=== PATIENT | male | born 1995 | race Caucasian/White ===

== ENCOUNTER 2018-03-25 02:58 | Emergency (ER) | payer OTHER ==
[~2018-03-25] VITALS: Ht 185.4 cm; Wt 67.3 kg
[2018-03-25 03:09] VITALS: Ht 185.4 cm; Wt 67.3 kg
--- NOTE | 2018-03-25 03:22 | EMERGENCY ROOM VISIT NOTE ---
History Report prepared by Evelyn: Barron Goff Under the Supervision of: Dr. Deana Roberts D.O. First contact with patient: 03:07 Chief Complaint: ALCOHOL OVERDOSE Stated Complaint: ALCOHOL Nursing Triage Summary: Pt was walking [place] [facility] and was stopped by police. Pt refused to answer or cooperate with police and was arrested. Pt had been drinking tonight and EMS was called. the patient was released to EMS and sent here for evaluation. History of Present Illness The patient is a 22 year old male who presents to the Emergency Room with complaints of persistent general alcohol intoxication [employer]. Per EMS, the patient was released to EMS by police. PER EMS, the patient has been drinking. They report there was mud all over the patients clothing. They note his heart rate was 130. The patient reports drinking beers. He denies any illicit drug use. He denies any vomiting. He denies any underlying medical problems. He states he is a [employer] in college. He denies chewing tobacco. He states he was eating [employer]. He denies any abdominal pain. He denies any recent falls or other injuries. HPI is limited secondary to alcohol intoxication. Source of History: patient, EMS History Limited By: intoxication (alcohol ) Onset: [employer] Position: other (general ) Quality: other (alcohol intoxication) Timing: other (persistent ) Associated Symptoms: No vomiting Note: Denies any falls or injuries. Review of Systems ROS is limited secondary to alcohol intoxication. Past Medical & Surgical Medical Problems: (1) No Known Active Medical Problems Family History No pertinent family history Social History Smoking Status: Never Smoker Alcohol Use: heavy Marital Status: single Housing Status: lives with roommate Occupation Status: [employer] student Current/Historical Medications Unable to Obtain Active Prescriptions or Reported Meds Physical Exam Vital Signs Date Time Temp Pulse Resp B/P (MAP) Pulse Ox O2 Delivery O2 Flow Rate FiO2 03/25/18 06:14 36.5 101 18 126/73 96 Room Air 03/25/18 04:42 90 18 105/52 94 Nasal Cannula 2.0 03/25/18 03:46 95 Nasal Cannula 2.0 03/25/18 03:46 84 Room Air 03/25/18 03:35 96 Nasal Cannula 2.0 03/25/18 03:34 85 Room Air 03/25/18 03:12 Room Air 03/25/18 03:09 36.5 115 18 158/96 95 Room Air Physical Exam General: Smells of ETOH HEENT: Head - normocephalic and atraumatic Pupils are 2 mm, round, and non- reactive to light. Extraocular eye muscles are intact, and sclera are anicteric. Nose - moist nasal mucosa without discharge. Mouth - moist buccal mucosa. Oropharynx is nonerythematous and there is no tonsillar exudate or edema noted. Brown substance about his face and mouth. Neck: Supple; no JVD, nuchal rigidity, cervical lymphadenopathy. Heart: Tachycardic rate and regular rhythm. There is a normal S1 and S2 with no murmurs, clicks, or gallops appreciated. Lungs: Clear to auscultation bilaterally with no wheezes, rales, or rhonchi. Abdomen: Soft, completely nontender, nondistended, with good bowel sounds. There are no palpable pulsatile masses or hepatosplenomegaly. There is no guarding, rigidity, or rebound noted. Extremities: No evidence of cyanosis, clubbing, or edema. There are easily palpable peripheral pulses. Skin: warm and dry with good turgor and no rashes. Medical Decision & Procedures Laboratory Results 03/25/18 03:08 Test 03/25/18 03:08 Anion Gap 6.0 mmol/L (3-11) Est Creatinine Clear Calc Drug Dose 148.3 ml/min Estimated GFR () > 150.0 Estimated GFR (Non- 131.1 BUN/Creatinine Ratio 15.8 (10-20) Calcium Level 7.9 mg/dl (8.5-10.1) Ethyl Alcohol mg/dL 324.0 mg/dl (0-3) Laboratory results per my review. ED Course 0300: Past medical records reviewed. The patient was evaluated in room B11B. A complete history and physical exam was performed. The patient was placed in the prone position to avoid aspiration. They were observed on the environmental monitoring technician and pulse oximeter. Labs were drawn as above 0333: I reassessed the patient at this time. His stats are 85%. He is sleeping. Nurses will place him on supplemental oxygen. 0444: I reassessed the patient at this time. He is sleeping. His vitals are stable. 0600: I reassessed the patient at this time. He is stable and sleeping. 0730: The patient was signed out to Dr. Perez, ED at shift change. Medical Decision The patient is a 22 year old male who presents to the ED with alcohol intoxication. Differential diagnosis includes alcohol overdose, drug intoxication, head injury, and hypoglycemia. Lab results showed: Alcohol 324. Gluc 126. Normal renal function. The patient was brought to the emergency department after consuming too much alcohol. There were no obvious signs of trauma or complaints of pain. They were observed closely throughout the night and remained stable while here in the ER. The patient was allowed time to sober up prior to discharge. The patient remains asleep at the change of shift. The case will be sent for Dr. Perez awaiting sobriety. Medication Reconcilliation Current Medication List: was personally reviewed by me Blood Pressure Screening Patient's blood pressure: Elevated blood pressure Blood pressure disposition: Elevated BP felt to be situational Impression Primary Impression: Alcohol overdose Scribe Attestation The scribe's documentation has been prepared under my direction and personally reviewed by me in its entirety. I confirm that the note above accurately reflects all work, treatment, procedures, and medical decision making performed by me. Departure Information Dispostion Still a Patient Prescriptions Unable to Obtain Active Prescriptions or Reported Meds Forms HOME CARE DOCUMENTATION FORM, IMPORTANT VISIT INFORMATION Patient Instructions ED Overdose Alcohol, [facility]: [employer] Students and Alcohol Related Visits, My [facility] Additional Instructions Avoid such excessive alcohol use in the future. Tylenol 650 mg every 6 hours for headache. Drink plenty of fluids and take a bland diet today. Return to the emergency department for worsening symptoms or any medical concerns. Problem Qualifiers Primary Impression: Alcohol overdose Encounter type: initial encounter Injury intent: accidental or unintentional Qualified Codes: T51.91XA - Toxic effect of unspecified alcohol , accidental (unintentional), initial encounter
[2018-03-25 03:44] LABS: BLOOD UREA NITROGEN 12 mg/dl (7-18); CALCIUM 7.9 mg/dl (8.5-10.1); CARBON DIOXIDE 26 mmol/L (21-32); CREATININE 0.75 mg/dl (0.60-1.40); GLUCOSE 126 mg/dl (70-99); POTASSIUM 3.7 mmol/L (3.5-5.1); SODIUM 139 mmol/L (136-145)
[2018-03-25 03:46] VITALS: O2SAT 95
[2018-03-25 06:14] VITALS: TEMP 36.5
--- NOTE | 2018-03-25 07:25 | EMERGENCY ROOM VISIT NOTE ---
ED Visit Note First contact with patient: 07:13 The patient was taken in signout from Dr. Roberts at the change of shift. Please see that note for details. The patient was pending clearance of intoxication. This appears to be related to an isolated overdose of alcohol. By the evaluation outlined above emergent etiologies such as trauma, infection , hypoglycemia, electrolyte abnormalities, cardiac sources, intracerebral event , neurologic,as well as others were deemed relatively unlikely. The patient was informed about the findings as listed above. All questions were answered and the patient was pleased with the treatment. Return instructions were outlined and the patient was discharged in stable condition once their mental status improved and a safe destination was confirmed.
[2018-03-25 10:12] VITALS: BP 111/63; PULSE 97; O2SAT 99
== END 2018-03-25 10:22 | disposition home or self-care (01) ==
LOC: EDBD 02:58 → C.EDB 02:59
DX: T51.0X1A Toxic effect of ethanol, accidental (unintentional), initial encounter (principal)